=== PATIENT | male | born 1940 | race Two or more races ===

== ENCOUNTER 2023-07-01 12:49 | Outpatient (RCR) | payer OTHER, SELFPAY | END 2023-07-26 11:52 | disposition home or self-care (01) | LOC: HO.WCC 12:49 | PROVIDERS: PCP Student in an Organized Health Care Education/Training Program; Visit Provider Surgery | DX: E11.621 Type 2 diabetes mellitus with foot ulcer (principal); L97.522 Non-pressure chronic ulcer of other part of left foot with fat layer exposed; Z79.4 Long term (current) use of insulin | CPT/HCPCS: 11043 ==